=== PATIENT | female | born 2000 | race Caucasian/White ===

== ENCOUNTER 2023-02-09 10:55 | Inpatient (IN) | payer BC, SELFPAY ==
[2023-02-09] VITALS (22 sets, daily range): BP systolic 106–141; BP diastolic 50–105; PULSE 89–115; RESP 12–25; TEMP 36.4–38.5; O2SAT 93–100; BMI 33.1
--- NOTE | 2023-02-09 11:33 | CRLHL7_ITS ---
For Patients: As a result of the Century Cures Act, medical imaging exams and procedure reports are released immediately into your electronic medical record. You may view this report before your referring provider. If you have questions, please contact your health care provider. INDICATION: Right lower quadrant abdominal pain. Nausea. Anorexia. TECHNIQUE: Multiple axial images were obtained from the diaphragm to the symphysis pubis after administration of 92 mL of Isovue-370 intravenously. Sagittal and coronal re-formatted images were obtained. COMPARISON: None. FINDINGS: The visualized portion of the lung bases are clear. There is no focal liver lesion. The spleen, pancreas, gallbladder and adrenal glands are unremarkable. There is no mass or hydronephrosis in the kidneys. There is no evidence of a bowel obstruction. There is an enlarged appendix with surrounding inflammation and appendicolith consistent with an acute appendicitis. There is no abscess or free intraperitoneal air. There is no free fluid in the abdomen or pelvis. The abdominal aorta is normal in caliber. There is no adenopathy. Impression: Acute appendicitis. No abscess or free intraperitoneal air. Please note that all CT scans at this facility use dose modulation, iterative reconstruction, and/or weight-based dosing when appropriate to reduce radiation dose to as low as reasonably achievable. Dictated by Eduardo Damon MD @ 02/09/2023 1:00:04 PM (Electronically Signed)
--- NOTE | 2023-02-09 11:35 | ED.GENADULT ---
HPI - General Adult General Time Seen by Provider: 11:35 Date Seen: 02/09/23 Chief complaint: Abdominal Pain Stated complaint: Abdominal pain Time Seen by Provider: 02/09/23 11:06 History of Present Illness HPI narrative: This is a very pleasant 22-year-old female who is a . She has a past surgical history of previous surgical repair of what sounds like bilateral inguinal hernias and umbilical hernia when she was an infant. No other operations. No other long-term medical conditions. She presents to the ER today accompanied by her friend. She developed epigastric/midline abdominal pain yesterday evening around 7:00 p.m.. It came on fairly abruptly. It was present but moderate at onset. It got worse over night. It woke her up from sleep about 1:00 a.m.. She had a curl up into a ball. It is worse when she moves and better when she holds still but never really goes away. She has been nauseous but not vomiting. No fever. No diarrhea and bowel movements have been normal lately. No BM today. No urinary symptoms. Last menstrual cycle was early January. No other unusual vaginal bleeding, spotting, or vaginal discharge. She went to the ER in [place] overnight. There she apparently had lab work that was reported to be ?normal?. She received GI cocktail with no improvement in her symptoms. She received ibuprofen with no improvement in her symptoms. She was discharged home and told that everything was normal. No imaging obtained. A few hours ago the pain really began to settle more in her right lower quadrant (and also radiates a little bit to her right flank and suprapubic region). It is worse. It hurts a lot when she tries to move. It is somewhat better when she holds still. Related Data Home Medications Medication Instructions Recorded Confirmed lamotrigine 200 mg tablet 400 mg PO QDAY 02/09/23 02/09/23 (Lamictal) oral control 02/09/23 propranolol PO DAILY 02/09/23 Allergies Allergy/AdvReac Type Severity Reaction Status Date / Time No Known Drug Allergies Allergy Verified 02/09/23 11:00 [facility] PFS Social History Smoking Status: Never smoker Do you use any of these nicotine containing products: None Non-prescribed substance use: denies use Exam Narrative: Exam Narrative: Constitutional: Appears well-developed and well-nourished. Alert. Conversant. Non toxic. HENT: Head: Atraumatic. Nose: Nose normal. Mouth/Throat: Oral mucosa is clear and moist. no trismus. Pharynx normal. Tonsils symmetric. No tonsillar enlargement, erythema, or exudate. Eyes: Conjunctivae normal. EOM normal. Pupils equal, round, and reactive to light. No scleral icterus. Neck: Normal range of motion. Neck supple. No tracheal deviation present. Cardiovascular: Normal rate, regular rhythm. No gallop. No friction rub. No murmur heard. Symmetric radial artery pulses Pulmonary/Chest: Effort normal. No stridor. No respiratory distress. No wheezes. No rales. No rhonchi . No tenderness. Abdominal: Soft. Bowel sounds normal. No distension. No mass. Marked right lower quadrant> suprapubic and right upper quadrant and right CVA tenderness. Positive right lower quadrant guarding. No rebound. No Rovsing sign. Equivocally positive psoas sign. No pain/tenderness with heel tap or pelvic rocking. Musculoskeletal: RUE: Normal range of motion. No tenderness. No deformity LUE: Normal range of motion. No tenderness. No deformity RLE: Normal range of motion. No edema. No tenderness. No deformity LLE: Normal range of motion. No edema. No tenderness. No deformity Neurological: Alert and oriented to person, place, and time. Normal strength. CN II-VII intact. No sensory deficit. GCS eye subscore is 4. GCS verbal subscore is 5. GCS motor subscore is 6. Normal coordination Skin: Skin is warm and dry. No rash noted. No pallor. Normal capillary refill. Psychiatric: Normal mood. Normal affect. Const: Vital Signs, click to edit/add: Vital Signs - 24 hr 02/09/23 10:58 02/09/23 12:22 Temperature 97.6 F Pulse Rate 106 H Pulse Rate [Pulse Oximeter] 98 Respiratory Rate 14 12 Blood Pressure 135/86 Blood Pressure [Ri ght Upper Arm] 120/76 Pulse Oximetry 98 100 Oxygen Delivery Me thod Room Air Course Course Hospital Course: Recheck-pain improved after Dilaudid. Resting more comfortably but still having some pain. Would like another dose-ordered Vital Signs Vital signs: Initial Vital Signs Temperature 97.6 F 02/09/23 10:58 Temperature Source Temporal Artery Scan 02/09/23 10:58 Pulse Rate 98 02/09/23 10:58 Pulse Rhythm Regular 02/09/23 10:58 Respiratory Rate 14 02/09/23 10:58 Blood Pressure 120/76 02/09/23 10:58 Blood Pressure Mean 90 02/09/23 10:58 Blood Pressure Position Sitting 02/09/23 10:58 Pulse Oximetry 98 02/09/23 10:58 Oxygen Delivery Method Room Air 02/09/23 10:58 Vital Signs Temperature 97.6 F 02/09/23 10:58 Pulse Rate 98 02/09/23 10:58 Respiratory Rate 14 02/09/23 10:58 Blood Pressure 120/76 02/09/23 10:58 Pulse Oximetry 98 02/09/23 10:58 Oxygen Delivery Method Room Air 02/09/23 10:58 Temperature 97.6 F 02/09/23 10:58 Pulse Rate 106 H 02/09/23 12:22 Respiratory Rate 12 02/09/23 12:22 Blood Pressure 135/86 02/09/23 12:22 Pulse Oximetry 100 02/09/23 12:22 Oxygen Delivery Method Room Air 02/09/23 10:58 Medical Decision Making MDM Narrative Medical decision making narrative: The patient presented with migratory right lower quadrant abdominal pain and the Workup, including CT scan, confirms appendicitis. She is not . She has leukocytosis. There is no CT evidence of rupture or abscess at this time. Pain has been controlled with interventions in the Emergency Department. Discussed with surgery, Dr. Lopez. She will start antibiotics in the pre anesthesia area and assess to hold off for the ER.. The case was discussed with the dry wall installations mechanic surgeon and the patient will be going to the operating room. Lab Data Labs: Lab Results 02/09/23 02/09/23 Range/Units 11:35 12:11 WBC 17.19 H (4.50-11.00) K/uL RBC 4.51 (4.00-5.20) m/uL Hgb 13.0 (12.0-16.0) gm/dL Hct 40.9 (33.0-51.0) % MCV 91 (80-100) fL MCH 29 (26-34) pg MCHC 32 (32-36) gm/dL RDW Coeff of Lisset 12.7 (11.5-15.5) % Plt Count 363 (140-440) K/uL Neut % (Auto) 85.2 H (42.0-72.0) % Lymph % (Auto) 8.8 L (20-44) % Haralson % (Auto) 5.5 (0.0-11.0) % Eos % (Auto) 0.1 (0.0-7.0) % Baso % (Auto) 0.3 (0.0-3.0) % Neut # (Auto) 14.60 H (1.7-7.0) K/uL Lymph # (Auto) 1.50 (0.90-2.90) K/uL Haralson # (Auto) 0.90 (0.00-0.90) K/UL Eos # (Auto) 0.00 (0.00-0.50) K/uL Baso # (Auto) 0.10 (0.00-0.30) K/uL Abs Immat Gran (auto) 0.00 (0.00-0.30) K/uL Imm/Tot Granulo (auto) 0.1 % Sodium 138 (135-149) mmol/L Potassium 3.8 (3.6-5.1) mmol/L Chloride 101 (96-114) mmol/L Carbon Dioxide 27 (20-32) mmol/L Anion Gap 10 (7-15) mEq/L BUN 6 (5-24) mg/dL Creatinine 0.6 (0.5-1.5) mg/dL Estimated Creat Clear 122.69 Estimated GFR 131 ml/min Glucose 93 (60-115) mg/dL Calcium 9.5 (8.4-10.6) mg/dL Total Bilirubin 0.6 (0.1-1.5) mg/dL AST 24 (12-35) U/L ALT 22 (4-35) U/L Alkaline Phosphatase 74 (40-150) U/L Total Protein 7.5 (6.0-8.3) g/dL Albumin 4.4 (3.3-5.0) g/dL Lipase 34 (23-300) U/L HCG, Qual Negative (Negative) Urine Color Yellow (Yellow) Urine Appearance Clear (Clear) Urine pH 7.0 (5.0-8.5) Ur Specific [place] 1.025 (1.000-1.030) Urine Protein Negative (Negative) Urine Glucose (UA) Negative (Negative) Urine Ketones 2+ A (Negative) Urine Blood Trace-intact A (Negative) Urine Nitrite Negative (Negative) Urine Bilirubin Negative (Negative) Urine Urobilinogen 0.2 (0.2-1.0) Ur Leukocyte Esterase Negative (Negative) Urine RBC 0-2 (0-2) Urine WBC 0-2 (0-5) Ur Squamous Epith Cells Many A (None-Few) Amorphous Sediment Few A (None) Urine Bacteria Few A (None) Imaging Data CT scan - abdomen: Attestation: I have reviewed the pertinent imaging results. Radiologist's impression: Impression: Acute appendicitis. No abscess or free intraperitoneal air. Discharge Plan Discharge Clinical Impression: Acute appendicitis Prescriptions: No Action lamotrigine [Lamictal] 200 mg tablet 400 mg PO QDAY propranolol PO DAILY oral control Follow Up/Referrals: Provider,Not a Local [Primary Care Provider] -
[2023-02-09] MEDS: HYDROmorphone 0.5 mg/0.5 ml inj IVP ×3 (11:42→17:43)
[2023-02-09] MEDS: 0.9 % SODIUM CHLORIDE 1000 ml 1,000 ML IV (11:42)
[2023-02-09] MEDS: ONDANSETRON 2 MG/ML inj 4 MG IVP ×2 (11:42→14:21)
[2023-02-09 11:49] LABS: Basophils Percent Auto 0.3 % (0.0-3.0); Eosinophils Percent Auto 0.1 % (0.0-7.0); Hematocrit 40.9 % (33.0-51.0); Immature Granulocytes Pct Auto 0.1 %; Lymphocytes Percent Auto 8.8 % (20-44); Mean Corpuscular HGB Conc 32 gm/dL (32-36); Mean Corpuscular Hemoglobin 29 pg (26-34); Mean Corpuscular Volume 91 fL (80-100); Monocytes Percent Auto 5.5 % (0.0-11.0); Neutrophils Percent Auto 85.2 % (42.0-72.0); Platelet Count* 363 K/uL (140-440); RDW Coefficient of Variation % 12.7 % (11.5-15.5); Red Blood Count 4.51 m/uL (4.00-5.20); White Blood Count* 17.19 K/uL (4.50-11.00)
[2023-02-09 12:01] LABS: Albumin* 4.4 g/dL (3.3-5.0)
[2023-02-09 12:02] LABS: Chloride* 101 mmol/L (96-114); Potassium* 3.8 mmol/L (3.6-5.1); Slide Review Reflex No; Sodium* 138 mmol/L (135-149)
[2023-02-09 12:04] LABS: Bilirubin Total* 0.6 mg/dL (0.1-1.5); Creatinine* 0.6 mg/dL (0.5-1.5); Est. Creatinine Clearance* 122.69; Estimated Glomerular Filt Rate 131 ml/min; HCG Qualitative Serum* Negative (Negative)
[2023-02-09 12:05] LABS: Alanine Aminotransferase* 22 U/L (4-35); Alkaline Phosphatase* 74 U/L (40-150); Anion Gap 10 mEq/L (7-15); Aspartate Amino Transferase* 24 U/L (12-35); Blood Urea Nitrogen* 6 mg/dL (5-24); Carbon Dioxide* 27 mmol/L (20-32); Glucose* 93 mg/dL (60-115); Lipase* 34 U/L (23-300); Total Protein* 7.5 g/dL (6.0-8.3)
[2023-02-09 12:06] LABS: Calcium* 9.5 mg/dL (8.4-10.6)
[2023-02-09 12:25] LABS: Appearance Urine Clear (Clear); Bilirubin Urine Negative (Negative); Blood Urine Trace-intact (Negative); Color Urine Yellow (Yellow); Glucose Urine Negative (Negative); Ketones Urine 2+ (Negative); Leukocyte Esterase Urine Negative (Negative); Nitrite Urine Negative (Negative); Protein Urine Negative (Negative); Specific Gravity Urine 1.025 (1.000-1.030); Urobilinogen Urine 0.2 (0.2-1.0)
[2023-02-09 12:58] LABS: Amorphous Sediment Urine Few; Bacteria Urine Few; RBC Urine 0-2 (0-2); Squamous Epithelial Cell Urine Many (None-Few); WBC Urine 0-2 (0-5)
--- NOTE | 2023-02-09 14:03 | ED.NURSE ---
Dr. Lopez at bedside.
--- NOTE | 2023-02-09 14:12 | PM.GSHP ---
History of Present Illness History of Present Illness Date Seen: 02/09/23 Chief complaint: Abdominal pain Narrative: Luis A Hoang is a 22 year old female who presented to the emergency department with worsening abdominal pain. She states that the pain started yesterday evening, was initially in her upper abdomen but then migrated to the right lower quadrant. She has never had pain like this before. Movement makes it worse, nothing seems to make it better. She does report associated nausea and anorexia, no emesis. Denies any diarrhea. She does feel shaky, but did not have any fever at home. She has never had abdominal surgery before. Review of Systems Status of ROS: Reports: 10 or more systems reviewed and unremarkable except as noted in History and below PFSH PFS Social History Smoking Status: Never smoker Do you use any of these nicotine containing products: None Non-prescribed substance use: denies use Meds Home Medications and Allergies Home Medications Medication Instructions Recorded Confirmed Type lamotrigine 200 mg tablet 400 mg PO QDAY 02/09/23 02/09/23 History (Lamictal) oral control 02/09/23 History propranolol PO DAILY 02/09/23 History Allergies Allergy/AdvReac Type Severity Reaction Status Date / Time No Known Drug Allergies Allergy Verified 02/09/23 11:00 Exam Narrative: Exam Narrative: General: Patient lying in bed, rigors and in moderate discomfort Respiratory: Equal breath rise bilaterally, maintained on room air CV: Tachycardia Abdomen: Soft, tender to palpation right lower quadrant with guarding and rebound Const: Vital Signs, click to edit/add: Vital Signs - 24 hr 02/09/23 10:58 02/09/23 12:22 02/09/23 13:30 Temperature 97.6 F Pulse Rate 106 H Pulse Rate [Pulse Oximeter] 98 110 H Respiratory Rate 14 12 18 Blood Pressure 135/86 Blood Pressure [Ri ght Upper Arm] 120/76 117/70 Pulse Oximetry 98 100 100 Oxygen Delivery Me thod Room Air Room Air Results Results Labs: Leukocytosis, [address] scan report/results: report reviewed and image reviewed Assessment and Plan Assessment and plan (1) Acute appendicitis: Status: Acute Plan The patient presented with a history, exam and imaging findings consistent with acute appendicitis. I discussed the treatment options with the patient including non-surgical and surgical options. I recommended laparoscopic appendectomy. The risks of surgery were reviewed with the patient including the risks of bleeding, post-operative wound or intra-abdominal infection, injury to abdominal structures and possible conversion to an open operation. We also discussed anesthetic complications including [place], stroke, respiratory failure and blood clots. The patient voiced an understanding of our conversation, had the opportunity to ask questions, agreed to accept the risks of surgery and asked that we proceed with surgery.
[2023-02-09] MEDS: LACTATED RINGERS 1000 ML 1,000 ML 100 ML IV (14:25)
--- NOTE | 2023-02-09 14:25 | ED.NURSE ---
Ice pack provided, per Pt request for SOLITARIO. Zofran given, as ordered for nausea. IV SL at this time.
--- NOTE | 2023-02-09 14:36 | ED.NURSE ---
Pt to OR via w/c.
[2023-02-09] MEDS: PIPERACILLIN/TAZOBACTAM 3.375 GM INJ IVPB (14:45)
[2023-02-09] MEDS: BUPIVACAINE 0.25% 30 ML INJECTION (15:17)
--- NOTE | 2023-02-09 15:25 | PM.GSPRC ---
Operative Note Pre-op diagnosis: Acute appendicitis Post-op diagnosis: Same, non perforated Type of Procedure: Laparoscopic appendectomy Indications: Patient is a 22-year-old female with clinical workup and history consistent with acute appendicitis. Risks and benefits of operative intervention were discussed at length with the patient. Risks included but was not limited to: Bleeding, infection, risk of damage to surrounding structures, possible need for additional procedures, possible need to convert to an open operation and postoperative complications such as pneumonia, pulmonary emboli or [place]. All questions and concerns were addressed with the patient agreeing to proceed. Procedure Description: After discussing the risks and benefits of the procedure, the patient signed informed consent.? The operative site was marked and the patient was brought to the operating room and placed on the operating table in supine position.? Care was taken to pad the patient's pressure points.?? The patient was then intubated by anesthesia.?? The operative site was then prepped and draped in the usual sterile fashion.? A time-out was then performed. Entrance to the abdomen was obtained via a 5 mm optical trocar in the left upper quadrant. The abdomen was insufflated and briefly surveyed for any signs of injury. There were none. A 12 mm port was placed lateral to the umbilicus as well as a 5 mm port in the left lower quadrant under direct vision. The patient was then placed in Trendelenburg position with the right side up. The small bowel was gently moved out of the way and the appendix was in view. A small amount of dissection was necessary to free the appendix from the surrounding pelvic attachments. This was grasped and pulled into view. The appendix was inflamed and dilated with overlying fibrinous exudate, but no obvious perforation. A mesenteric window was created between the base of the appendix and the mesoappendix. A 30 mm Endo-LEX purple load stapler was then used to transect the appendix at its base. A 45 mm vascular load stapler was then used to take the mesoappendix. There was a small amount of mesoappendix that was not transected with the stapler. This was cauterized with the handheld cautery, taking care not to injure underlying bowel. The staple lines were inspected for bleeding. There was none. The appendix was then removed from the abdomen using an Endo-Catch bag. The specimen was sent to pathology. The 12 mm port site fascia was closed with 0 Vicryl via the [place]-D[place]. All other ports were removed under direct visualization. The skin was then closed with absorbable subcuticular suture. Sterile dressings were then applied. Instrument sponge and needle counts were correct at the end of the case. The patient was then woken and transported to the PACU in stable condition. Findings: Acute appendicitis, non perforated Anesthesia: GETA Surgeon: Jess Lopez MD Estimated blood loss (mL): 5 Specimen: Appendix Condition: stable Disposition: PACU Date of procedure: 02/09/23
--- NOTE | 2023-02-09 15:42 | P.ANES_ITS ---
Anesthesia Charges Start Date/Time Anesthesia Start Date: 02/09/23 Anesthesia Start Time: 14:36 Stop Date/Time Anesthesia Stop Date: 02/09/23 Anesthesia Stop Time: 15:35 Summary Emergency: [employer]
--- NOTE | 2023-02-09 16:00 | SUR.PHASEI ---
Desire'd to leave pacu early per LM
--- NOTE | 2023-02-09 16:01 | SUR.PHASEI ---
Dr. Lopez notified of temp of 101.3. Will communicate to floor that Dr. Lopez will order antibiotics and patient should stay overnight.
[2023-02-09] MEDS: LACTATED RINGERS 1000 ML 1,000 ML 125 ML IV (16:40)
[2023-02-09] MEDS: KETOROLAC 15 MG/ML inj IVP (16:40)
[2023-02-09] MEDS: ONDANSETRON 2 MG/ML inj IVP (19:48)
[2023-02-09] MEDS: PIPERACILLIN/TAZOBACTAM 3.375 GM in 0.9 % SODIUM CHLORIDE Mini-bag 100 ML IVPB (19:49)
[2023-02-09] MEDS: 0.9 % SODIUM CHLORIDE 250 ml IV (21:37)
--- NOTE | 2023-02-09 22:05 | PC.NURSE ---
Patient to the unit at 1605. Rates pain 2-6/10 with PRN medications for relief. PRN Zofran x1 for nausea. BS active. 3 laps sites SAMMIE. Active ice to op site. SBA. Eating and voiding.
[2023-02-10] VITALS (7 sets, daily range): BP systolic 111–127; BP diastolic 59–82; PULSE 86–107; RESP 14–18; TEMP 36.6–37.1; O2SAT 95–98
[2023-02-10] MEDS: PIPERACILLIN/TAZOBACTAM 3.375 GM in 0.9 % SODIUM CHLORIDE Mini-bag 100 ML IVPB ×4 (01:54→20:06)
--- NOTE | 2023-02-10 05:30 | PC.NURSE ---
END OF SHIFT NOTE: PT FATIGUED AND COOPERATIVE. A&Ox3. PT DENIES ANY CP, SOB, N/V. AMBULATES WITHIN ROOM INDEPENDENTLY. VSS ON RA; AFEBRILE. PT REPORTS SLIGHT PAIN WITH MOVEMENT; PT TOLERATING WITHOUT PAIN RELIEVER. NO PAIN WHILE AT REST. x3 GLUED ABDOMINAL LAP SITES C/D/I AND RUBBLE PLACER. CALL LIGHT WITHIN PT?S REACH.?
[2023-02-10 06:25] LABS: Basophils Percent Auto 0.1 % (0.0-3.0); Hematocrit 32.7 % (33.0-51.0); Hemoglobin* 10.5 gm/dL (12.0-16.0); Immature Granulocytes Pct Auto 1.1 %; Lymphocytes Percent Auto 4.5 % (20-44); Mean Corpuscular HGB Conc 32 gm/dL (32-36); Mean Corpuscular Hemoglobin 29 pg (26-34); Mean Corpuscular Volume 90 fL (80-100); Neutrophils Percent Auto 91.3 % (42.0-72.0); Platelet Count* 317 K/uL (140-440); RDW Coefficient of Variation % 12.9 % (11.5-15.5); Red Blood Count 3.63 m/uL (4.00-5.20); White Blood Count* 19.31 K/uL (4.50-11.00)
[2023-02-10 06:28] LABS: Slide Review Reflex No
[2023-02-10] MEDS: ACETAMINOPHEN 325 MG TABLET 650 MG PO ×2 (09:32→15:33)
[2023-02-10] MEDS: OXYCODONE 5 MG TABLET PO (09:32)
[2023-02-10] MEDS: lamoTRIgine 100 MG TABLET 400 MG PO (10:26)
--- NOTE | 2023-02-10 10:37 | PM.GSPN ---
Subjective Subjective Date Seen: 02/10/23 Interval history: Patient is feeling good this morning. Some mild pain on the right side, significantly better than yesterday. Did have some fevers overnight. Denies any nausea and tolerating a regular diet. Exam Narrative: Exam Narrative: Gen: alert and oriented, NAD Abd: soft, non tender and non distended. No guarding or rebound. Incision sites c/d/i Const: Vital Signs, click to edit/add: Vital Signs - 24 hr 02/09/23 10:58 02/09/23 12:22 02/09/23 13:30 Temperature 97.6 F Pulse Rate 106 H Pulse Rate [Pulse Oximeter] 98 110 H Respiratory Rate 14 12 18 Blood Pressure 135/86 Blood Pressure [Ri ght Arm] Blood Pressure [Ri ght Upper Arm] 120/76 117/70 Pulse Oximetry 98 100 100 Oxygen Delivery Me thod Room Air Room Air Oxygen Flow Rate 02/09/23 15:30 02/09/23 15:35 02/09/23 15:40 Temperature 99.1 F Pulse Rate 106 H 90 89 Pulse Rate [Pulse Oximeter] Respiratory Rate 14 25 H 24 Blood Pressure 140/69 H 135/64 126/64 Blood Pressure [Ri ght Arm] Blood Pressure [Ri ght Upper Arm] Pulse Oximetry 93 97 96 Oxygen Delivery Me thod Nasal Cannula Oxygen Flow Rate 2 02/09/23 15:45 02/09/23 15:50 02/09/23 15:55 Temperature 101.3 F H Pulse Rate 90 92 90 Pulse Rate [Pulse Oximeter] Respiratory Rate 25 H 24 24 Blood Pressure 134/66 130/64 136/68 Blood Pressure [Ri ght Arm] Blood Pressure [Ri ght Upper Arm] Pulse Oximetry 97 95 95 Oxygen Delivery Me thod Room Air Room Air Oxygen Flow Rate 02/09/23 16:00 02/09/23 16:05 02/09/23 16:15 Temperature 100.0 F H 100.0 F H Pulse Rate 104 H Pulse Rate [Pulse Oximeter] 104 H 104 H Respiratory Rate 24 18 18 Blood Pressure 137/85 Blood Pressure [Ri ght Arm] 127/91 H 123/64 Blood Pressure [Ri ght Upper Arm] Pulse Oximetry 96 95 95 Oxygen Delivery Me thod Room Air Room Air Oxygen Flow Rate 02/09/23 16:18 02/09/23 16:30 02/09/23 16:45 Temperature 100.0 F H 100.0 F H Pulse Rate 104 H Pulse Rate [Pulse Oximeter] 108 H Respiratory Rate 18 20 Blood Pressure Blood Pressure [Ri ght Arm] 127/91 H 138/68 141/105 H Blood Pressure [Ri ght Upper Arm] Pulse Oximetry 94 95 Oxygen Delivery Me thod Room Air Room Air Room Air Oxygen Flow Rate 02/09/23 17:00 02/09/23 17:30 02/09/23 18:00 Temperature 100.0 F H 98.7 F Pulse Rate Pulse Rate [Pulse Oximeter] 115 H 106 H 110 H Respiratory Rate 18 16 18 Blood Pressure Blood Pressure [Ri ght Arm] 116/50 L 106/94 H 112/57 L Blood Pressure [Ri ght Upper Arm] Pulse Oximetry 94 94 95 Oxygen Delivery Me thod Room Air Room Air Room Air Oxygen Flow Rate 02/09/23 19:00 02/09/23 20:00 02/09/23 21:00 Temperature Pulse Rate Pulse Rate [Pulse Oximeter] 109 H 107 H 108 H Respiratory Rate 18 16 18 Blood Pressure Blood Pressure [Ri ght Arm] 117/62 127/63 115/80 Blood Pressure [Ri ght Upper Arm] Pulse Oximetry 96 97 96 Oxygen Delivery Me thod Room Air Room Air Room Air Oxygen Flow Rate 02/09/23 22:00 02/10/23 02:00 02/10/23 02:00 Temperature 98.7 F Pulse Rate Pulse Rate [Pulse Oximeter] 110 H 86 86 Respiratory Rate 16 14 14 Blood Pressure Blood Pressure [Ri ght Arm] 119/58 L 111/59 L Blood Pressure [Ri ght Upper Arm] Pulse Oximetry 95 96 Oxygen Delivery Me thod Room Air Room Air Oxygen Flow Rate 02/10/23 03:00 02/10/23 07:00 02/10/23 07:00 Temperature 98 F Pulse Rate Pulse Rate [Pulse Oximeter] 101 H 101 H Respiratory Rate 14 18 18 Blood Pressure Blood Pressure [Ri ght Arm] 113/82 Blood Pressure [Ri ght Upper Arm] Pulse Oximetry 96 Oxygen Delivery Me thod Room Air Room Air Oxygen Flow Rate Labs/Imaging Labs Labs: WBC 19 Progress Note: A&P Assessment and plan (1) Acute appendicitis: Status: Acute Assessment and Plan: Patient POD1 lap appy for acute appendicitis. No evidence of perforation intra op, but did have some inflammatory adhesions and fibrinous exudate present in the RLQ. Some low grade fevers overnight and increasing leukocytosis this morning (17 -->19). Will have patient stay inpatient on IV antibiotics until >24 hrs afebrile and down trending WBC. Will plan for a course of antibiotics at discharge. - reg diet - dc IVF - po pain meds as needed - IV Zosyn - encourage ambulation - SCDs for DVT ppx - trend fever and WBC
[2023-02-10] MEDS: IBUPROFEN 600 MG TABLET PO (12:47)
[2023-02-10] MEDS: 0.9 % SODIUM CHLORIDE 250 ml IV (14:09)
--- NOTE | 2023-02-10 18:58 | PC.NURSE ---
Nursing Care Hours: [id number] Pt this shift alert and oriented, calm and cooperative. Pain increased from 0/10 to 7/10 after breakfast and using bathroom. Treated per eMAR. Pain rest of shift remained 0-2/10 with Ibuprofen and Acetaminophen and ice. No nausea. Bowel sounds hypoactive. Encouraged walking the halls, pt walked gann x1. Director Of Corporate Marketing encouraged pt to go multiple times a day to promote gastric motility. Pt took a shower, educated on wound care. Lap site open to air and asymptomatic. Eating, drinking. voiding sufficiently. No BM.
[2023-02-10] MEDS: SENNOSIDES 1 TAB TABLET PO (20:16)
--- NOTE | 2023-02-10 22:50 | PC.NURSE ---
Pt pleasant and coopertive. Up ambulating in the hallways. VSS. BT +, Pt states passing flatus. No BM Tolerating reg diet. Given senna at bedtime per her request.
[2023-02-11] MEDS: OXYCODONE 5 MG TABLET PO (01:42)
[2023-02-11] MEDS: PIPERACILLIN/TAZOBACTAM 3.375 GM in 0.9 % SODIUM CHLORIDE Mini-bag 100 ML IVPB ×2 (01:43→08:39)
[2023-02-11 02:00] VITALS: BP 118/72; PULSE 107; RESP 16; TEMP 36.8; O2SAT 97
[2023-02-11 06:21] LABS: Basophils Absolute Auto 0.03 K/uL (0.00-0.30); Basophils Percent Auto 0.4 % (0.0-3.0); Eosinophils Absolute Auto 0.07 K/uL (0.00-0.50); Hematocrit 29.9 % (33.0-51.0); Hemoglobin* 9.6 gm/dL (12.0-16.0); Immature Granulocytes Abs Auto 0.06 K/uL (0.00-0.30); Immature Granulocytes Pct Auto 0.8 %; Lymphocytes Percent Auto 15.1 % (20-44); Mean Corpuscular HGB Conc 32 gm/dL (32-36); Mean Corpuscular Hemoglobin 29 pg (26-34); Mean Corpuscular Volume 91 fL (80-100); Monocytes Percent Auto 6.9 % (0.0-11.0); Neutrophils Percent Auto 75.8 % (42.0-72.0); Platelet Count* 247 K/uL (140-440); RDW Coefficient of Variation % 13.1 % (11.5-15.5); Red Blood Count 3.27 m/uL (4.00-5.20); White Blood Count* 7.15 K/uL (4.50-11.00)
[2023-02-11 06:25] LABS: Slide Review Reflex No
--- NOTE | 2023-02-11 06:37 | PC.NURSE ---
END OF SHIFT NOTE: PT PLEASANT AND COOPERATIVE. A&Ox3. DENIES CP, SOB, N/V. AMBULATES INDEPENDENTLY. WALKED HALLS x1. VSS ON RA; AFEBRILE. C/O ABDOMINAL PAIN 6/10 WITH MOVEMENT; RELIEF FROM PRN PAIN MED AND ICE. 3x GLUED LAP SITES SAMMIE. CALL LIGHT WITHIN PT?S REACH. BS+. PASSING FLATUS. NO BM THIS SHIFT.
[2023-02-11 08:00] VITALS: BP 110/59; PULSE 98; RESP 16; TEMP 37; O2SAT 95
--- NOTE | 2023-02-11 09:11 | PM.DS1 ---
DS: Providers Provider Date Seen: 02/11/23 Date of admission: 02/10/23 09:55 Primary care physician: Not a Local Provider Admitting Clinician: Jess Lopez MD Attending Physician on discharge: Jess Lopez MD DS: Summary Hospital Course Hospital Course: Patient was admitted to the hospital with clinical workup in symptoms consistent with acute appendicitis. She under went a laparoscopic appendectomy, no evidence of perforation with some surrounding inflammatory fluid and fibrinous exudate in the right lower quadrant. Postoperatively she did have fevers and an increase in her WBC (17--19). She continued on IV antibiotics until she was afebrile for greater than 24 hours and had normalization of her WBC, on postop day 2. At the time of discharge she was transitioned to Augmentin to complete a 7 day course, was ambulating without difficulty, voiding independently, tolerating a regular diet and had return of bowel function. Time Spent with Patient Time attestation: Total time spent providing and/or coordinating discharge services: Exam Narrative: Exam Narrative: General: Alert and oriented, no acute distress. Respiratory: Equal breath rise, maintained on room air CV: Tachycardic, regular rhythm Abdomen: Soft, nontender and nondistended. Incisions clean/dry/intact Const: Vital Signs, click to edit/add: Vital Signs - 24 hr 02/10/23 11:00 02/10/23 15:00 02/10/23 15:00 Temperature Pulse Rate [Pulse Oximeter] 107 H 107 H 106 H Respiratory Rate 18 18 18 Blood Pressure [Ri ght Arm] 123/82 121/75 Pulse Oximetry 98 95 Oxygen Delivery Me thod Room Air Room Air 02/10/23 19:00 02/11/23 02:00 02/11/23 02:00 Temperature 98.5 F 98.2 F Pulse Rate [Pulse Oximeter] 101 H 107 H 107 H Respiratory Rate 16 16 Blood Pressure [Ri ght Arm] 127/77 118/72 Pulse Oximetry 97 Oxygen Delivery Me thod Room Air DS: Data Data Completed and Pending Labs on day of discharge: Labs from last 24 hours 02/11/23 06:04 WBC 7.15 RBC 3.27 L Hgb 9.6 L Hct 29.9 L MCV 91 MCH 29 MCHC 32 RDW Coeff of Lisset 13.1 Plt Count 247 Neut % (Auto) 75.8 H Lymph % (Auto) 15.1 L [place] % (Auto) 6.9 Eos % (Auto) 1.0 Baso % (Auto) 0.4 Neut # (Auto) 5.40 Lymph # (Auto) 1.10 [place] # (Auto) 0.50 Eos # (Auto) 0.07 Baso # (Auto) 0.03 Abs Immat Gran (auto) 0.06 Imm/Tot Granulo (auto) 0.8 Discharge Plan Discharge Disposition: Home, Self-Care Date of Admission: 02/10/23 09:55 Primary Care Provider: Provider,Not a Local Condition: Improved Anticipated Discharge Date/Time: 02/11/23 08:07 Discharge Medications: New oxycodone 5 mg tablet 5 mg PO Q6H PRN (Reason: pain) Qty: 10 0RF senna 8.6 mg capsule 8.6 mg PO DAILY PRN (Reason: constipation) Qty: 90 0RF amoxicillin-pot clavulanate 875-125 mg tablet 1 tab PO BID Qty: 10 0RF Continued lamotrigine [Lamictal] 200 mg tablet 400 mg PO QDAY propranolol PO DAILY oral control sucralfate 1 gram tablet 1 g PO QID propranolol 10 mg tablet 10 mg PO DAILY Discharge Orders: Discharge Order (Routine); Ordered 02/11/23 Ordered By: Jess Lopez Patient Education: Surgical Site Infections (DC), General Anesthesia (DC), Laparoscopic Appendectomy (DC), Post-Operative Instructions: Appendectomy Additional Instructions: You were prescribed a narcotic pain medication. In addition you may supplement with Tylenol and/or ibuprofen. Be sure to not exceed greater than 4 g of Tylenol in a 24 hour period. While on narcotic pain medicine please take stool softeners. A prescription of stool softeners has been sent to the pharmacy. Stop if having greater than 2 stools per day. Okay to shower starting tomorrow. Do not soak in a bath or swim for 2 weeks. Activity Level: No strenuous activity Activity Detail: Activity as tolerated. Avoid strenuous activity. No lifting greater than 20 lb for 2 weeks. Discharge Diet: Regular Follow Up Appointments: Provider,Not a Local [Primary Care Provider] - Forms: Work/School Release
[2023-02-11] MEDS: SENNOSIDES 1 TAB TABLET PO (09:36)
[2023-02-11] MEDS: lamoTRIgine 100 MG TABLET 400 MG PO (09:36)
[2023-02-11] MEDS: IBUPROFEN 600 MG TABLET PO (09:39)
--- NOTE | 2023-02-11 11:24 | PC.NURSE ---
VSS AND AFEBRILE. LAP SITES x3 TO ABDOMEN COVERED WITH INTACT SURGICAL GLUE AND SAMMIE. DENIED N/V. REPORTED PAIN 3/10 IMPROVED WITH PO PAIN MEDS. IBUPROFEN ADMINISTERED PRIOR TO DC. DECLINED BREAKFAST. SALINE LOCK DC'D. REVIEWED DC INSTRUCTIONS WITH PATIENT AND SHE DENIED QUESTIONS OR CONCERNS. PATIENT DC'D HOME VIA FRIEND.
== END 2023-02-11 09:55 | disposition home or self-care (01) | DRG 225 ==
LOC: ED 13:58 → SS 14:37 → MEDSURG 16:18 → SS 02-10 09:57 → MEDSURG 02-11 09:11
PROVIDERS: Admitting Provider Surgery; Emergency Provider Emergency Medicine; Visit Provider Surgery
PROC: 0DTJ4ZZ Resection of Appendix, Percutaneous Endoscopic Approach (ICD-10-PCS; CPT 44970; principal; 2023-02-09 14:15)
DX: K35.80 Unspecified acute appendicitis (principal); R50.82 Postprocedural fever; D72.829 Elevated white blood cell count, unspecified
CPT/HCPCS: 00840; 36415; 74177; 80053; 81001; 83690; 84703; 85025; 87086; 88304; 99140; 99284; 99285; A9270; J0330; J0665; J1100; J1170; J1885; J2405; J2543; J2704; J2710; J3010; J7030; J7050; J7120; Q9967

== ENCOUNTER 2024-11-14 19:15 | Outpatient (CLI) | payer BC, SELFPAY | END 2024-11-14 19:16 | disposition home or self-care (01) | PROVIDERS: Visit Provider Physician Assistant | DX: N92.6 Irregular menstruation, unspecified (principal) | CPT/HCPCS: 84146; 84443 ==

== ENCOUNTER 2024-12-26 09:02 | Outpatient (CLI) | payer BC, SELFPAY ==
--- NOTE | 2024-12-26 09:15 | CRLHL7_ITS ---
For Patients: As a result of the Century Cures Act, medical imaging exams and procedure reports are released immediately into your electronic medical record. You may view this report before your referring provider. If you have questions, please contact your health care provider. CLINICAL HISTORY: Excessive frequent menstruation with IUD TECHNIQUE: Transabdominal and transvaginal pelvic ultrasound. Transvaginal images of the pelvis were obtained for better visualization of the ovaries. Grayscale and color Doppler images were submitted. COMPARISON: 02/09/[address] FINDINGS: Uterus: 8.2 x 4.3 x 4.9 cm. Normal appearance. Endometrium: 2 mm There is an IUD in place. This is located within the lower uterine segment, proximally 3 cm from the fundus. Right ovary: 4.0 x 2.5 x 2.0 cm Normal appearance. Left ovary: 4.1 x 1.9 x 2.5 cm Normal appearance. No adnexal mass. No free fluid. IMPRESSION: Malpositioned IUD located within the lower uterine segment. Dictated by Obie Webber MD @ 12/27/2024 3:25:39 PM (Electronically Signed)
== END 2024-12-26 09:03 | disposition home or self-care (01) ==
LOC: US 09:03
PROVIDERS: Visit Provider Physician Assistant
DX: N92.1 Excessive and frequent menstruation with irregular cycle (principal); Z97.5 Presence of (intrauterine) contraceptive device
CPT/HCPCS: 76830; 76856

== ENCOUNTER 2025-01-23 14:06 | Emergency (ER) | payer BC, SELFPAY ==
--- OUTSIDE RECORDS SUMMARY | 2025-01-21 14:53 | XMS_ITS | Encounter Summary ---
Author Organization [facility] Address [address] [place] [address] Care Team Providers Care Bundle Helper Name Role Phone Alysai Vora APRN, C.N.P. Primary Care Pro vider Reason for Visit * Reason Comments Pelvic Pain Patient presents w/i ntermittent shooting pelvic pain onset one week ago. She states that urinating and certain movements provoke the pain. She states she is unable to locate the IUD strings, this was placed on 01/03/25. Encounter Details Date Type Department Care Team (Late st Contact Info) Description 01/21/2025 2:53 PM CDT - 01/21/2025 5:21 PM CDT Emergency [facility] [address] [place] [phone] Christiano Carmona M.D. [address] [place] [phone] Other Specified Conditions Associated With Female Genital Organs And Menstrual Cycle (Primary Dx); Pain Pelvic Female; Vaginosis Bacterial Discharge Disposition: Home or Self Care Social History Tobacco Use Types Packs/Day Years Used Date Smoking Tobacco: Never Passive Smoke Exposure: Never Smokeless Tobacco: Never Alcohol Use Standard Drinks/Week Comments Never 0 (1 standard drink = 0.6 oz pur e alcohol) [facility] Utilities Answer Date Recorded In the past 12 months has [employer], gas, oil, or water company threatened to shut off services in your home? No 10/09/2023 Humiliation, Afraid, Rape, and Kick questionnair e Answer Date Recorded Within the last year, have y ou been afraid of your partner or ex-partner? No 08/01/2022 Within the last year, have y ou been humiliated or emotionally abused in other ways by your partner or ex-partner? No Within the last year, have y ou been kicked, hit, slapped, or otherwise physically hurt by your partner or ex-partner? No 08/01/2022 Within the last year, have y ou been raped or forced to have any kind of sexual activity by your partner or ex-partner? No 08/01/2022 Hunger Vital Sign Answer Date Recorded Within the past 12 months, y ou worried that your food would run out before you got the money to buy more. Never true 10/09/19 Within the past 12 months, t he food you bought just didn't last and you didn't have money to get more. Never true 10/09/2023 PRAPARE - Transportation Answer Date Re corded In the past 12 months, has l ack of transportation kept you from medical appointments or from getting medications? No 08/2023 In the past 12 months, has l ack of transportation kept you from meetings, work, or from getting things needed for daily living? No 10/09/2023 Depression Answer Date Recor ded PHQ-9 Total Score (max 27) 9 11/14 Housing Stability Answer Date Recorded What is your living situation today? I have a [facility] place to live 10/09/2023 Education Answer Date Recorded What is the highest level of school you have completed or the highest degree you have received? 12th grade 08/01/2022 Comments No Sex and Gender Information Value Date Recorded Sex Assigned at Female 04/24/2021 1:37 PM [employer] Legal Sex Female 4:54 PM [employer] Gender Identity Female 07/31/2020 9:20 AM [employer] Sexual Orientation Straight 07/31/2020 9: 20 AM [employer] documented as of this encounter Last Filed Vital Signs Vital Sign Reading Time Taken Comments Blood Pressure 118/76 01/21/2025 5:20 PM CDT Pulse 72 01/21/2025 5:20 PM CDT Temperature 37.4 C (99.3 F) 01/21/2025 3:02 PM CDT Respiratory Rate 16 01/21/2025 5:20 PM CDT Oxygen Saturation 100% 01/21/2025 5:20 PM CDT Inhaled Oxygen Concentration - - Weight 85.3 kg (188 lb) 01/21/2025 2:56 PM CDT Height 160 cm (5' 3) 01/21/2025 2:56 PM CDT Body Mass Index 33.3 01/21/2025 2:56 PM CDT documented in this encounter Discharge Instructions * Discharge Instructions* Alex Arreaga M.D. - 01/21/2025 5:08 PM CDT Discharge Instructions After Emergency Department Visit for Pelvic Pain You came to the emergency department with pelvic pain that gets worse when you move or urinate. Youalso noticed more vaginal discharge, but no bleeding. You had an intrauterine device (IUD) placed about three weeks ago, and your exam today showed that the IUD strings are shorter than usual and maybe poking the cervix. There is no sign that the IUD has gone through the wall of your uterus (perforation), but it may not be in the right position. What to Expect Next: - You will be contacted if your tests for sexually transmitted infections (STIs) are positive. If you do not hear back, your tests were negative. - You should follow up with your women's clinic (the clinic that placed your IUD) as soon as possible. They will help decide if the IUD needs to be removed, replaced, or left in place. - An outpatient ultrasound may be needed to check the position of your IUD. What You Should Do: - Watch for any new symptoms, such as fever, chills, severe pain, heavy vaginal bleeding, or foul-smelling discharge. If these happen, seek medical care right away. - Avoid sexual intercourse until you have been seen by your women's clinic and your STI results areback. - Take any medications prescribed to you as directed. - Keep your follow-up appointment with your women's clinic, even if you start to feel better. Why Follow-Up Is Important: - Sometimes, an IUD can move out of place, which may cause pain or increase the risk of infection. Checking the position with an ultrasound and talking to your clinic is the safest way to make sure you stay healthy. - Evidence-based medicine shows that following up with your healthcare team and using the best available information helps prevent complications and improves outcomes.[1][2][3][4][5] Questions or Concerns: - If you have any questions or new symptoms, contact your healthcare provider or return to the emergency department. Thank you for taking care of your health. Your safety and well-being are our top priorities. References Users' Guides to the Medical Literature: XXV. Evidence-Based Medicine: Principles for Applying the Users' Guides to Patient Care. Serg GH, Davi RB, Shawn WhartonZ, et al. ROD. 2000;284(10):1290-6. doi:10.1001/rod.284.10.1290. The [place]: Evidence-Based Medicine in the Age of Information. Citlali DB, Fernando K, Jillian P. Journal of the [place] Academy of Child and Adolescent Psychiatry. 2019;58(1):8-15. doi:10.1016/j.jaac.2018.06.035. Evidence-Based Medicine: Useful Tools for Decision Making. Matias SHAHANA, Irwig LM, Concetta MR. The Medical Journal of [place]. 2001;174(5):248-53. doi:10.5694/j.0126-7399.2001.os018880.x. [place] Statement on Evidence-Based Practice. Tashi M, Sumit W, Glasziou P, et al. BMC MedicalEducation. 2005;5(1):1. doi:10.1186/9695-7824-5-1. Evidence-Based Medicine in a Nutshell: A Guide to Finding and Using the Best Evidence in Caring forPatients. Christopher Pierre. Archives of Dermatology. 1998;134(12):1609-18. doi:10.1001/archderm.134.12.1609. documented in this encounter Medications at Time of Discharge cetirizine (ZyrTEC) 10 mg tabletIndications :Rhinitis Allergic Take 1 tablet (10 mg total) by mouth daily as needed for allergies. 07/31/2021 gabapentin (Neurontin) 300 mg capsule Take 1 capsule (300 mg total) by mouth 2 (two) times a day. 60 capsule 2 12/02/2024 metroNIDAZOLE (FlagyL) 500 mg tabletIndications :Vaginosis Bacterial Take 1 tablet (500 mg total) by mouth 2 (two) times a day for 7 days. 14 tablet 01/22/2025 01/29/2025 propranoloL (InderaL) 20 mg tablet Take 1 tablet (20 mg total) by mouth daily. 90 tablet 1 11/07/2024 lamoTRIgine (LaMICtaL) 150 mg tablet Take 1 tablet (150 mg total) by mouth 2 (two) times a day. 60 tablet 2 11/14/2024 01/23/2025 documented as of this encounter ED Notes * Christiano Carmona M.D. - 01/21/2025 3:[address] [facility] Department of [facility] 01/21/2025 5:11 PM CDT *Encounter labs and radiology results at the end of this note* Chief Complaint Patient presents with Pelvic Pain Patient presents w/intermittent shooting pelvic pain onset one week ago. She states that urinating and certain movements provoke the pain. She states she is unable to locate the IUD strings, this wasplaced on 01/03/25. PCP: Alysia Vora APRN, C.N.P. HPI: Luis A Hoang is a 24 y.o. otherwise healthy woman presenting to the emergency department with low pelvic pain worse with urination and movement. IUD was placed three weeks ago without complication. She has had increased vaginal discharge, no bleeding, and the sharp stabbing pain. Episodes last five or 10 minutes before resolving. Placed in [place] on 01/03/25. No complications. Denies any fevers or chills. No nausea vomiting diarrhea. No intercourse since placement. A complete review of systems was obtained and negative except as in the HPI. No significant alcohol, tobacco, or illicit drugs. PHYSICAL EXAMINATION General: Well-appearing in no acute distress. HEENT: Head is normocephalic and atraumatic. Hearing and vision are grossly normal. No scleral icterus, jaundice, or pallor. Neck: Supple, with normal range of motion. Heart: Heart rate is normal and regular Lungs: Breathing at a normal rate, no respiratory distress Abdomen: Nondistended. Mild suprapubic abdominal discomfort, no rebound : Normal external genitalia. Small amount of blood and moderate amount purulent discharge in the vaginal vault. No cervical motion tenderness. Strings are visible maybe 1 mm from the cervical os but certainly shorter than I would anticipate is normal. Neurologic: GCS 15. Moving all 4 extremities spontaneously. Psychiatric: Normal mood and affect. Differential diagnosis includes uterine perforation, misplaced IUD, dislodged IUD, STD, placement irritation. MDM: 24-year-old woman presenting just under three weeks from IUD placement, uncomplicated. With positional and urinary sharp stabbing pain in the lower pelvic region. Inconsistent with UTIs or otherpelvic pain. Urinalysis is not consistent with cystitis in the setting of no dysuria or other urinary symptoms. negative. Swabs are obtained and pending. We will send the urine for culture though after pelvic exam (as above) I suspect she has short IUD strings that are irritating in the cervix. No evidence of perforation or peritonitis. No indication for advanced imaging at this point. Will have her follow up with her placing practice for re-evaluation and discussion on management whether this includes removal, repositioning, or replacement of the IUD. Final Diagnoses: as of 01/21/25 1711 Other Specified Conditions Associated With Female Genital Organs And Menstrual Cycle - Cervix pain on movement and urination Pain Pelvic Female Vitals: 01/21/25 1502 01/21/25 1503 01/21/25 1506 01/21/25 1633 BP: 120/73 120/73 122/78 BP Location: Left arm Patient Position: Lying Pulse: 75 85 Resp: 16 Temp: 37.4 ??C TempSrc: Temporal SpO2: 98% 100% Weight: Height: Medications acetaminophen tablet 1,000 mg (TylenoL) (1,000 mg oral Given 01/21/25 1506) Clinical Impression: Final diagnoses: [N94.89] Other Specified Conditions Associated With Female Genital Organs And Menstrual Cycle - Cervix pain on movement and urination [R10.2] Pain Pelvic Female Disposition: Discharge ED Prescriptions None Labs Reviewed URINALYSIS WITH MICROSCOPIC IF INDICATED, U - Abnormal Result Value Source Urine, Urine, Midstream Clarity Clear Color Yellow Blood Moderate (*) Nitrite Negative Leukocyte Esterase Moderate (*) Protein Negative Glucose Negative Ketones, QI(U) Negative Bilirubin Negative pH 6.5 Specific [place] 1.010 Urobilinogen 0.2 MICROSCOPIC MANUAL - Abnormal White Blood Cells 4-10 Red Blood Cells 3-10 (*) Dysmorphic Red Blood Cells <=25 Squamous Cells 4-10 Bacteria Present (*) BACTERIAL CULTURE, AEROBIC + SUSC, URINE CHLAMYDIA/GONORRHOEAE AMPLIFIED RNA VAGINITIS PANEL, AMPLIFIED RNA TEST, POCT, U (LAB) Test, POCT, U Negative US OB Transvaginal (Results Pending) Christiano Carmona M.D. 01/21/25 1711 documented in this encounter Plan of Treatment Pending Results Name Type Priority Associated Diagnoses Date /Time Chlamydia / Gonorrhoeae Amplified RNA Microbiology STAT 01/21/2025 4:50 PM CDT Scheduled Orders Name Type Priority Associated Diagnoses Order Schedule Chlamydia / Gonorrhoeae Amplified RNA Microbiology STAT STAT for 1 Occurrences starting 01/21/2025 until 01/21/2025 OB Transvaginal Imaging RAD - Routine (most inpatients and all outpatients) Other Specified Conditions Associated With Female Genital Organs And Menstrual Cycle Expected: 01/21/2025, Expires: 04/23/2026 documented as of this encounter Procedures Procedure Name Priority Date/Time Associated Diagnosis Comments VAGINITIS PANEL, AMPLIFIED RNA STAT 01/21/2025 4:50 PM CDT URINALYSIS WITH MICROSCOPIC IF INDICATED, U STAT 01/21/2025 2:57 PM CDT HC URINALYSIS AUTO W MICRO STAT 01/21/2025 2:57 PM CDT BACTERIAL CULTURE, AEROBIC + SUSC, URINE Routine 01/21/2025 2:57 PM CDT TEST, POCT, U (LAB) STAT 01/21/2025 2:57 PM CDT documented in this encounter Results * (ABNORMAL) Vaginitis Panel, Amplified RNA (01/21/2025 4:50 PM CDT) Bacterial Vaginosis, Amplified RNA Positive(A) Negative 01/22/2025 4:33 AM CDT MKTO Comment: Results should be interpreted alongside clinical presentation. Up to 40% of asymptomatic patients may test positive by this assay. Assay result is based on relative amounts of Lactobacillus (L. gasseri, L. crispatus, L. jensenii), Gardnerella vaginalis and Atopobium vaginae. Individual organisms are not reported. Prisca species, Amplified RNA Negative Negative 01/22/2025 4:38 AM CDT MKTO Comment: No RNA detected from Prisca albicans, C. tropicalis, C. parapsilosis or C. dubliniensis. A negative result does not exclude infection. Prisca glabrata, Amplified RNA Negative Negative 01/22/2025 4:38 AM CDT MKTO Comment: No RNA detected from Prisca glabrata. A negative result does not exclude infection. Trichomonas vaginalis Amplified RNA Negative Negative 01/22/2025 4:38 AM CDT MKTO Swab (Vagina) 01/21/2025 4:5 0 PM CDT 01/21/2025 9:55 PM CDT us Christiano FINE MICROBIOLOGY - GENERAL O RDERABLES Final Result [facility] [address] [place] [address], [facility] MKTO [address] [address] * Bacterial Culture, Aerobic + Susceptibility, Urine (01/21/2025 2:57 PM CDT) Urine Culture Urogenital microbiota, susceptibilities not performed per laboratory criteria. 01/22/2025 3:56 PM CDT MKTO Urine (Urine, Midstream) 01/21/2025 2:57 PM CDT 01/21/2025 9:55 PM CDT Comment:Specimen Source Site : Urine us Christiano aCrmona M.D. LAB MICROBIOLOGY - GENERAL O RDERABLES Final Result Performing Organization Address [facility]/ZIP Co de Phone Number [facility] [address] [place] [address], [place] [facility] [address] [place] [address] * (ABNORMAL) Microscopic Manual (01/21/2025 2:57 PM CDT) White Blood Cells 4-10 /hpf 01/21/2025 3:13 PM CDT NPRG Comment: ----REFERENCE VALUE---- Males: 0-3 Females: 0-10 Unknown: 0-10 Red Blood Cells 3-10(A) 0 - 2 /hpf 3:13 PM CDT NPRG Dysmorphic Red Blood Cells <=25 <=25 % 01/21/2025 3:13 PM CDT NPRG Squamous Cells 4-10 /hpf 01/21/2025 3:13 PM CDT NPRG Bacteria Present(A) None Seen 01/21/2025 3:13 PM CDT NPRG Urine 01/21/2025 2:57 PM CDT 01/21/2025 3:01 PM CDT us Soft Results Interface LAB URINE ORDERABLES Jackeline l Result [facility] [address] [place] [address], [place] NPRG [facility] [address] [place] [address] * Test, POCT, Urine (Lab) (01/21/2025 2:57 PM CDT) Test, POCT, U Negative 01/21/2025 3:13 PM CDT NPRG Urine (Urine, Midstream) 01/21/2025 2:57 PM CDT 01/21/2025 3:01 PM CDT Christiano Carmona M.D. LAB POCT ORDERABLES - DEVICE Final Result [facility] [address] [place] [address], [facility] NPRG [facility] [address] [place] [address] * (ABNORMAL) Urinalysis with Microscopic if Indicated: Urine, Midstream (01/21/2025 2:57 PM CDT) Source Urine, Urine, Midstream 01/21/2025 3:01 PM CDT NPRG Clarity Clear Clear 01/21/2025 3:04 PM CDT NPRG Color Yellow 01/21/2025 3:04 PM CDT NPRG Comment: ----REFERENCE VALUE---- Colorless Yellow Elsa Blood Moderate(A) Negative 01/21/2025 3:04 PM CDT NPRG Nitrite Negative Negative 01/21/2025 3:04 PM CDT NPRG Leukocyte Esterase Moderate(A) Negative 01/21/2025 3:04 PM CDT NPRG Protein Negative mg/dL 01/21/2025 3:04 PM CDT NPRG Comment: ----REFERENCE VALUE---- Negative Trace Glucose Negative Negative mg/dL 01/21/2025 3:04 PM CDT NPRG Ketones, QI(U) Negative Negative mg/dL 01/21/2025 3:04 PM CDT NPRG Bilirubin Negative Negative 01/21/2025 3:04 PM CDT NPRG pH 6.5 5.0 - 8.0 01/21/2025 3:04 PM CDT NPRG Specific [place] 1.010 1.001 - 1.035 01/21/2025 3:04 PM CDT NPRG Urobilinogen 0.2 0.2 - 1.0 mg/dL 01/21/2025 3:04 PM CDT NPRG Urine (Urine, Midstream) 01/21/2025 2:57 PM CDT 01/21/2025 3:01 PM CDT us Christiano Carmona M.D. LAB URINE ORDERABLES Final R esult [facility] [address] [place] [address], [place] NPRG [facility] [address] [place] [address] documented in this encounter Visit Diagnoses Diagnosis Other Specified Conditions Associated With Female Genital Organs And Menstrual Cycle- Primary Pain Pelvic Female Vaginosis Bacterial documented in this encounter Administered Medications Inactive Administered Medications - up to 3 most recent administrations Medication Order MAR Action Action Date Dose Rate Site acetaminophen tablet 1,000 mg (TylenoL) 1,000 mg, oral, Once, On 01/21/25 at 1504, For 1 dose Given 01/21/2025 3:06 PM CDT 1,000 mg documented in this encounter Active and Recently Administered Medications Times are shown in CDT. Scheduled Medication Order 01/19/2025 01/20/2025 01/21/2025 acetaminophen tablet 1,000 mg (TylenoL) (COMPLETED) 1,000 mg, oral, Once, On 01/21/25 at 1504, For 1 dose 1506 (Given - Provid er: Digna Dewitt R.N.) documented in this encounter Additional Health Concerns Assessment Noted Time PHQ-9 Depression Total Score: 9 11/15/19 25 9:24 AM CDT documented as of this encounter Care Teams Bundle Helper Relationship Specialty Start Date End Date Alysia Vora APRN, C.N.P. [address] [place] [phone] PCP - General Family Medicine 08/03/19 documented as of this encounter
--- OUTSIDE RECORDS SUMMARY | 2025-01-21 16:10 | XMS_ITS | Encounter Summary ---
Author Organization [facility] Address [address] [place] [address] Care Team Providers Care Hot Press Operator Name Role Phone Alysia Vora APRN, C.N.P. Primary Care Pro vider Encounter Details Date Type Department Care Team (Late st Contact Info) Description 01/21/2025 4:10 PM CDT Ancillary Procedure Department of Emergency Medicine Arrived Social History Tobacco Use Types Packs/Day Years Used Date Smoking Tobacco: Never Passive Smoke Exposure: Never Smokeless Tobacco: Never Alcohol Use Standard Drinks/Week Comments Never 0 (1 standard drink = 0.6 oz pur e alcohol) [facility] Utilities Answer Date Recorded In the past 12 months has e [employer], gas, oil, or water [employer] threatened to shut off services in your [...] money to buy more. Never true 10/09/19 24 Within the past 12 months, t he [...] your living situation today? I have a [facility] place to live 10/09/2023 Education Answer Date Recorded What is the highest level of school you have completed or the highest degree you have received? 12th grade 08/01/2022 Comments No Sex and Gender Information Value Date Recorded Sex Assigned at Female 04/24/2021 1:37 PM SECURITY OPERATIONS CENTER ANALYST Legal Sex Female 4:54 PM SECURITY OPERATIONS CENTER ANALYST Gender Identity Female 07/31/2020 9:20 AM SECURITY OPERATIONS CENTER ANALYST Sexual Orientation Straight 07/31/2020 9: 20 AM SECURITY OPERATIONS CENTER ANALYST documented as of this encounter Plan of Treatment Not on file documented as of this encounter Procedures Procedure Name Priority Date/Time Associated Diagnosis Comments EMERGENCY DEPARTMENT IMAGE EXAM Routine 01/21/2025 4:10 PM CDT documented in this encounter Results * Non-Radiology Image-Emergency Department Image Exam (01/21/2025 4:10 PM CDT) 01/21/2025 4:06 PM CDT Narrative IIMS - 01/21/2025 4:25 PM CDT This order has been created and auto-finalized to support the import of images acquired without order. The clinical documentation to support these images can be found on the encounter that produced images. us Provider Not In System IMG NON RAD IMAGING PROCE DURES Final Result IIMS NA documented in this encounter Visit Diagnoses Not on filedocumented in this encounter Additional Health Concerns Assessment Noted Time PHQ-9 Depression Total Score: 9 11/15/19 25 9:24 AM CDT documented as of this encounter Care Teams Hot Press Operator Relationship Specialty Start Date End Date Alysia Vora APRN, C.N.P. [address] [place] [phone] PCP - General Family Medicine 08/03/19 documented as of this encounter
--- OUTSIDE RECORDS SUMMARY | 2025-01-23 14:09 | XMS_ITS | Clinical Summary ---
Author Organization [facility] Address [address] [place] [address] Care Team Providers Care Preparation Plant Supervisor Name Role Phone Alysia Vora APRN, C.N.P. Primary Care Pro vider Source Comments Patient records contain information from all sites at [facility]. For routine questions regarding patient records, call [phone] during business hours, M-F 8:00 AM - 5:00 PM Central Time. Record requests for emergency care only can be directed to [phone] at any time.[facility] Allergies No known active allergies Medications * This document contains information received from the source organization and may not represent a complete record from that organization. cetirizine (ZyrTEC) 10 mg tabletIndicati ons:Rhinitis Allergic Take 1 tablet (10 mg total) by mouth daily as needed for allergies. 2 Active propranoloL (InderaL) 20 mg tablet Take 1 tablet (20 mg total) by mouth daily. 90 tablet 1 5 Active gabapentin (Neurontin) 300 mg capsule Take 1 capsule (300 mg total) by mouth 2 (two) times a day. 60 capsule 2 5 Active metroNIDAZOLE (FlagyL) 500 mg tabletIndicati ons:Vaginosis Bacterial Take 1 tablet (500 mg total) by mouth 2 (two) times a day for 7 days. 14 tablet 5 025 Active lamoTRIgine (LaMICtaL) 100 mg tablet Take 125mg by mouth twice daily for one week, then decrease to 100mg by mouth twice daily. 60 tablet 2 5 Active lamoTRIgine (LaMICtaL) 25 mg tablet Take 125mg by mouth twice daily for one week, then decrease to 100mg by mouth twice daily. 14 tablet 5 Active lamoTRIgine (LaMICtaL) 150 mg tablet Take 1 tablet (150 mg total) by mouth 2 (two) times a day. 60 tablet 2 5 025 Discontinued Active Problems Patient Care Coordination No te Formatting of this note migh t be different from the original. GC/chl at 14wk visit GDM Problem Noted Date Diagnosed Date Anxiety Disorder Unspecified 07/28/2023 Insomnia 12/05/2022 Pain Knee Right 12/30/2021 Overview (12/30/2021): Added automatically from request for surgery [id number] Bipolar II Disorder 09/23/2021 Posttraumatic Stress Disorder Prolonged 07/08/19 22 Resolved Problems Problem Noted Date Diagnosed Date Resolved Date Obsessive Compulsive Disorder 03/24/2023 12/01/2023 Encounters * This document contains information received from the source organization and may not represent a complete record from that organization. Date Type Department Care Team Description 01/22/2025 Results Follow-Up [facility] [address] [place] [phone] Alex Arreaga M.D. Bacterial Culture, Aerobic + Susceptibility, Urine, Vaginitis Panel, Amplified RNA 01/21/2025 4:10 PM CDT Ancillary Procedure Department of Emergency Medicine Arrived 01/21/2025 2:53 PM CDT - 01/21/2025 5:21 PM CDT Emergency [facility] [address] [place] [phone] Christiano Carmona M.D. Other Specified Conditions Associated With Female Genital Organs And Menstrual Cycle (Primary Dx); Pain Pelvic Female; Vaginosis Bacterial Discharge Disposition: Home or Self Care 01/21/2025 Nurse Triage Department of Family Medicine in [place], [place] [address] [place] [phone] Lesky, Libby E, R.N. Contraception from Last 3 Months Immunizations Immunization Administration Dates Next Due DTaP (Infanrix, Tripedia) 12/31/2006,11/2002,2001,2001,2001 HepA Pediatric/Adolescent 10/17/2013 Hib-HepB 05/26/2002,2001,2001 IPV 12/31/2006, 2,2001,2001 Influenza, Unspecified 04/19/2015 MCV4 (Menactra)(Discontinued) 10/17/2013 MMR 08/11/2002 MMRV 12/31/2006 PCV7 (discontinued) 05/26/2002,02/24/2002 Tdap 10/01/2020,11/03/2017,10/17/2013 SASHA 08/11/2002 influenza vaccine quad (FLUZONE/FLUARIX) (6 months and older)(PF) 04/18/2021,03/21/2020,05/06/2019,2017 Family History Medical History Relation Name Comments Hypertension Father Phong Hoang Anxiety disorder Mother nurys Asthma Mother nurys Relation Name Status Comments Father Phong Hoang Alive Mother nurys Alive Social History Tobacco Use Types Packs/Day Years Used Date Smoking Tobacco: Never Passive Smoke Exposure: Never Smokeless Tobacco: Never Tobacco Cessation:Counseling Given: Not Answered Alcohol Use Standard Drinks/Week Comments Never 0 (1 standard drink = 0.6 oz pur e alcohol) [facility] Utilities Answer Date Recorded In the past 12 months has [facility] [employer], [employer], or water [employer] threatened to shut off services in your [...] Recor ded PHQ-9 Total Score (max 27) 8 01/23 Housing Stability Answer Date Recorded What is your living situation today? I have a [facility] place to live 10/09/2023 Education Answer Date Recorded What is the highest level of school you have completed or the highest degree you have received? 12th grade 08/01/2022 Comments No Sex and Gender Information Value Date Recorded Sex Assigned at Female 04/24/2021 1:37 PM METAL RIVETER Legal Sex Female 4:54 PM METAL RIVETER Gender Identity Female 07/31/2020 9:20 AM METAL RIVETER Sexual Orientation Straight 07/31/2020 9: 20 AM METAL RIVETER Last Filed Vital Signs Vital Sign Reading Time Taken Comments Blood Pressure 118/76 01/21/2025 5:20 PM CDT Pulse 72 01/21/2025 5:20 PM CDT Temperature 37.4 C (99.3 F) 01/21/2025 3:02 PM CDT Respiratory Rate 16 01/21/2025 5:20 PM CDT Oxygen Saturation 100% 01/21/2025 5:20 PM CDT Inhaled Oxygen Concentration - - Weight 85.3 kg (188 lb 1.6 oz) 01/23/2025 11:21 AM CDT Height 160 cm (5' 3) 01/21/2025 2:56 PM CDT Body Mass Index 33.32 01/21/2025 2:56 PM CDT Plan of Treatment Health Maintenance Due Date Last Done Comments Hepatitis C Screening 2001 HPV Vaccines (1 - 3-dose series) 2016 Chlamydia and Gonorrhea Screening 10/15/2019 10/14/2018, 09/28/2017 COVID-19 Vaccine ( season) 2024 Influenza Vaccine (#1) 2025 , 03/21/2020, 05/06/2019, Additional history exists Cervical/Vaginal Cancer Screening 08/13/2025 08/13/2022 DTaP,Tdap,and Td Vaccines (9 - Td or Tdap) 10/01/2030 10/01/2020, 11/03/2017, 10/17/2013, Additional history exists Hepatitis B Vaccines Completed 05/26/2002, 2001, 2001 Pneumococcal vaccine (0-49 years) Aged Out 05/26/2002, 02/24/2002 No longer eligibl e based on patient's age to complete this topic IPV Vaccines Completed 12/31/2006, 11/2001, 2001, Additional history exists Varicella Vaccines Completed 12/31/2006, 08/11/2002 Hepatitis B Screening Discontinued 09/28/2017 HIV Screening Completed 05/24/2020, 09/28/2017 Glucose Test for Med Monitoring Discontinued 10/13/2023, 02/09/2023, 11/28/2022, Additional history exists Depression Screening (Annual PHQ-2) Completed 01/23/2025, 11/14/2024 Procedures Procedure Name Priority Date/Time Associated Diagnosis Comments VAGINITIS PANEL, AMPLIFIED RNA STAT 01/21/2025 4:50 PM CDT EMERGENCY DEPARTMENT IMAGE EXAM Routine 01/21/2025 4:10 PM CDT HC URINALYSIS AUTO W MICRO STAT 01/21/2025 2:57 PM CDT TEST, POCT, U (LAB) STAT 01/21/2025 2:57 PM CDT URINALYSIS WITH MICROSCOPIC IF INDICATED, U STAT 01/21/2025 2:57 PM CDT BACTERIAL CULTURE, AEROBIC + SUSC, URINE Routine 01/21/2025 2:57 PM CDT BASIC METABOLIC PANEL, S/P Routine 10/13/2023 10:40 AM CDT Palpitations Arrhythmia Sinus Other Chest Pain Fatigue THINPREP DIAGNOSTIC HPV REFLEX Routine 08/13/2022 10:00 AM METAL RIVETER Well Adult Examination Normal HIV-1/-2 AG AND AB SCRN, PLASMA Routine 05/24/2020 1:35 PM METAL RIVETER Abdominal With Intrauterine (HCC) CHLAMYDIA/GONORRHOEA E AMPLIFIED RNA Routine 10/14/2018 8:56 AM CDT Preventive Gynecological Exam HEPATITIS B SURFACE ANTIGEN Routine 09/28/2017 4:49 PM CDT Normal First from Last 3 Months or Most Recently Relevant to Health Maintenance Results * (ABNORMAL) Vaginitis Panel, Amplified RNA [...] CDT 01/21/2025 9:55 PM CDT us Christiano Carmona M.D. LAB MICROBIOLOGY - GENERAL O RDERABLES Final Result [facility] [address] [place] [address], [facility] [address] [facility] [address] [place] [address] * Non-Radiology Image-Emergency Department Image Exam (01/21/2025 [...] NON RAD IMAGING PROCE DURES Final Result Performing Organization Address City/[facility]/ZIP Co de Phone Number IIMS NA * (ABNORMAL) Urinalysis with Microscopic if Indicated: [...] 8.0 01/21/2025 3:04 PM CDT NPRG Specific [place] 1.010 1.001 - 1.035 01/21/2025 3:04 PM CDT NPRG Urobilinogen 0.2 0.2 - 1.0 mg/dL 01/21/2025 3:04 PM CDT NPRG Urine (Urine, Midstream) 01/21/2025 2:57 PM CDT 01/21/2025 3:01 PM CDT us Christiano Carmona M.D. LAB URINE ORDERABLES Final R esult Performing Organization Address [facility]/ZIP Co de Phone Number [facility] [address] [place] [address], [place] NPRG [address] [address] * (ABNORMAL) Microscopic Manual (01/21/2025 2:57 PM [...] Interface LAB URINE ORDERABLES Jackeline l Result Performing Organization Address [facility]/ZIP Co de Phone Number [facility] [address] [place] [address], [facility] NPRG [place] [address] [place] [address] * Bacterial Culture, Aerobic + Susceptibility, Urine (01/21/2025 2:57 PM CDT) Urine Culture Urogenital microbiota, susceptibilities not performed per laboratory criteria. 01/22/2025 3:56 PM CDT [facility] Urine (Urine, Midstream) 01/21/2025 2:57 PM CDT 01/21/2025 9:55 PM CDT Comment:Specimen Source Site : Urine Christiano Carmona M.D. LAB MICROBIOLOGY - GENERAL O RDERABLES Final Result [facility] [address] [place] [address], [facility] in [place] [address] [place] [address] * Test, POCT, Urine (Lab) (01/21/2025 2:57 PM CDT) Pathologist [facility] Test, POCT, U Negative 01/21/2025 3:13 PM CDT NPRG Urine (Urine, Midstream) 01/21/2025 2:57 PM CDT 01/21/2025 3:01 PM CDT Christiano Carmona M.D. LAB POCT ORDERABLES - DEVICE Final Result [facility] [address] [place] [address], [facility] NPRG [place] [address] [place] [address] * Basic Metabolic Panel (10/13/2023 10:40 AM CDT) Potassium, P 4.3 3.6 - 5.2 mmol/L 10/13/2023 3:56 PM CDT NPRG Sodium, P 138 135 - 145 mmol/L 10/13/2023 3:56 PM CDT NPRG Chloride, P 102 98 - 107 mmol/L 10/13/2023 3:56 PM CDT NPRG Bicarbonate, P 26 22 - 29 mmol/L 10/13/2023 3:56 PM CDT NPRG Anion Gap, P 10 7 - 15 10/13/2023 3:56 PM CDT NPRG BUN (Blood Urea Nitrogen), P 6 6 - 21 mg/dL 10/13/2023 3:56 PM CDT NPRG Creatinine 0.66 0.59 - 1.04 mg/dL 10/13/2023 3:56 PM CDT NPRG Estimated GFR (eGFR) >90 >=60 mL/min/BSA 10/13/2023 3:56 PM CDT NPRG Comment: Estimated GFR calculated using the 2020 CKD_EPI creatinine equation. Calcium, Total, P 9.0 8.6 - 10.0 mg/dL 10/13/2023 3:56 PM CDT NPRG Glucose, P 94 70 - 140 mg/dL 10/13/2023 3:56 PM CDT NPRG Blood (Blood, Venous) 10/13/2023 10:40 AM CDT 10/13/2023 3:29 PM CDT us Alysia Vora APRN, C.N.P. LAB BLOOD ADD-ON Final Result [facility] [address] [place] [address], [facility] NPRG [facility] [address] [place] [address] * ThinPrep Diagnostic HPV Reflex (08/13/2022 10:00 AM METAL RIVETER) 08/20/2022 1:21 PM CDT [facility] Report electronically signed by Dougie Meyer MD I verify that I have examined all relevant slides/materials for the specimen(s) and rendered or confirmed the diagnosis. 08/20/2022 1:21 PM CDT [facility] Gross Description Received specimen in a ThinPrep vial. 08/20/2022 1:21 PM CDT [facility] Pap Test Source Cervical/Endocervi toya 08/20/2022 1:21 PM CDT [facility] Clinical History cervix 08/21/19 1:21 PM CDT [facility] Hormone Therapy/Contracep tives oral contraceptives 08/20/2022 1:21 PM CDT [facility] Interpretation Cervical/Endocervi toya (ThinPrep): Satisfactory for Evaluation Negative for Intraepithelial Lesion or Malignancy 08/20/2022 1:21 PM CDT [facility] Thin Prep Vial (Cervix) 08/13/2022 10:00 AM METAL RIVETER 08/14/2022 8:26 AM METAL RIVETER us Alysia Vora PARTS ORDER AND STOCK CLERK, C.N.P. LAB PAP PATHDX OR DERABLES Final Result [facility] [address] [place] [address], [facility] [address] [place] [address] * HIV-1/-2 Ag and Ab Scrn, Plasma (05/24/2020 1:35 PM METAL RIVETER) HIV Ag/Ab Scrn, P Negative Negative 05/25/2020 2:33 PM METAL RIVETER [facility] Comment: Negative result does not rule out HIV infection. If exposure to HIV infection occurred <14 days ago, contact the laboratory to request addition of HIV-1 RNA detection / quantification test. HIV-1 p24 Ag Scrn, P Negative Negative 05/25/2020 2:33 PM METAL RIVETER [facility] Comment: Negative result does not rule out HIV infection. If exposure to HIV infection occurred <14 days ago, contact the laboratory to request addition of HIV-1 RNA detection / quantification test. HIV-1 Ab Scrn, P Negative Negative 05/25/2020 2:33 PM METAL RIVETER [facility] Comment: Negative result does not rule out HIV infection. If exposure to HIV infection occurred <14 days ago, contact the laboratory to request addition of HIV-1 RNA detection / quantification test. HIV-2 Ab Scrn, P Negative Negative 05/25/2020 2:33 PM METAL RIVETER [facility] Comment: Negative result does not rule out HIV infection. If exposure to HIV infection occurred <14 days ago, contact the laboratory to request addition of HIV-1 RNA detection / quantification test. Blood (Blood, Venous) 05/24/2020 1:35 PM METAL RIVETER 05/24/2020 6:32 PM METAL RIVETER Phong Lan M.D. LAB MICROBIOLOGY - BLOOD ORDERABLES Final Result Performing Organization Address City/[facility]/ZIP Co de Phone Number [facility] [address] [place] [address], [facility] in [place] [address] [place] [address] * Chlamydia / Gonorrhoeae Amplified RNA (10/14/2018 8:56 AM CDT) Source Urine, Urine, First Voided 10/14/2018 8:01 PM CDT [facility] Chlamydia trachomatis amplified RNA Negative Negative 10/14/2018 8:01 PM CDT [facility] Comment: ----ADDITIONAL INFORMATION---- This report is intended for use in clinical monitoring and management of patients. It is not intended for use in medical-legal applications. Source Urine, Urine, First Voided 10/14/2018 8:01 PM CDT [facility] Neisseria gonorrhoeae amplified RNA Negative Negative 10/14/2018 8:01 PM CDT [facility] Comment: ----ADDITIONAL INFORMATION---- This report is intended for use in clinical monitoring and management of patients. It is not intended for use in medical-legal applications. Varies (Urine, First Voided) 10/14/2018 8:56 AM CDT 10/14/2018 2:48 PM CDT Phong Lan M.D. LAB MICROBIOLOGY - GENER AL ORDERABLES Final Result Performing Organization Address City/[facility]/ZIP Co de Phone Number [facility] [address] [place] [address], [facility] * Hepatitis B Surface Antigen (09/28/2017 4:49 PM CDT) HBs Antigen, S Nonreactive Nonreactive 09/30/19 18 7:31 PM CDT [facility] Comment: Biotin has been identified by the suction plate carrier cleaner as a potential interfering substance. Higher concentrations of biotin may be found in multivitamins, hair/nail supplements, and workout supplements. If the result does not match clinical observations, repeat testing after patient refrains from the use of supplements for at least 12 hours. Blood (Blood, Venous) 09/28/2017 4:49 PM CDT 09/29/2017 7:27 PM CDT us Phong Lan M.D. LAB MICROBIOLOGY - BLOOD ORDERABLES Final Result [facility] [address] [place] [address], [facility] from Last 3 Months or Most Recently Relevant to Health Maintenance Insurance [facility] Advance Directives For more information, please contact: [phone] * Full Code (Latest Code Status on File) Date Activated Date Inactivated Comments 01/06/2022 10:59 AM 01/06/2022 2:02 PM Question Answer Comments Full Code: Discussed * Full Code Date Activated Date Inactivated Comments 01/08/2018 11:32 AM 01/10/2018 2:33 PM Question Answer Comments Full Code: Discussed * Full Code Date Activated Date Inactivated Comments 01/07/2018 11:53 PM 01/08/2018 11:32 AM Question Answer Comments Full Code: Discussed Care Teams Preparation Plant Supervisor Relationship Specialty Start Date End Date Alysia Vora APRN, C.N.P. [address] [place] [phone] PCP - General Family Medicine 08/03/19
--- OUTSIDE RECORDS SUMMARY | 2025-01-23 14:09 | XMS_ITS | Encounter Summary ---
Author Organization [facility] Address [address] [place] [address] Care Team Providers Care Cant Gang Sawyer Name Role Phone Alysia Vora APRN, C.N.P. Primary Care Pro vider Encounter Details Date Type Department Care Team (Late st Contact Info) Description 01/22/2025 Results Follow-Up [place] [facility] [address] [place] [phone] Alex Arreaga M.D. [address] [place] [phone] Bacterial Culture, Aerobic + Susceptibility, Urine, Vaginitis Panel, Amplified RNA Social History Tobacco Use Types Packs/Day Years Used Date Smoking Tobacco: Never Passive Smoke Exposure: Never Smokeless Tobacco: Never Alcohol Use Standard Drinks/Week Comments Never 0 (1 standard drink = 0.6 oz pur e alcohol) [facility] Utilities Answer Date Recorded In the past 12 months has [facility] [employer], gas, oil, or water [employer] threatened to shut off services in your [...] your living situation today? I have a [facility] place to live 10/09/2023 Education Answer Date Recorded What is the highest level of school you have completed or the highest degree you have received? 12th grade 08/01/2022 Comments No Sex and Gender Information Value Date Recorded Sex Assigned at Female 04/24/2021 1:37 PM PROVISIONING ANALYST Legal Sex Female 4:54 PM PROVISIONING ANALYST Gender Identity Female 07/31/2020 9:20 AM PROVISIONING ANALYST Sexual Orientation Straight 07/31/2020 9: 20 AM PROVISIONING ANALYST documented as of this encounter Functional Status * 1. Wish to be (Past 1 Month) Answer Date of Assessment Author No 01/23/2025 11:16 AM CDT Patient, Online Services * 2. Non-Specific Active Suicidal Thoughts (Past 1 Month) Answer Date of Assessment Author No 01/23/2025 11:16 AM CDT Patient, Online Services * Calculated C-SSRS Risk Score (Lifetime/Recent) Answer Date of Assessment Author No Risk Indicated 01/23/2025 11:16 AM CDT Vinod harris, Online Services * 6. Suicidal Behavior (Lifetime) Answer Date of Assessment Author No 01/23/2025 11:16 AM CDT Patient, Online Services documented as of this encounter Plan of Treatment Not on file documented as of this encounter Visit Diagnoses Not on filedocumented in this encounter Additional Health Concerns Assessment Noted Time PHQ-9 Depression Total Score: 9 11/15/19 25 9:24 AM CDT documented as of this encounter Care Teams Cant Gang Sawyer Relationship Specialty Start Date End Date Alysia Vora APRN, C.N.P. [address] [place] [phone] PCP - General Family Medicine 08/03/19 documented as of this encounter
--- OUTSIDE RECORDS SUMMARY | 2025-01-23 14:10 | XMS_ITS | Encounter Summary ---
[facility] Address [address] [place] [address] Care Team Providers Care Team Primary Care Physician Name Role Phone Alysia Vora APRN, C.N.P. Primary Care Pro vider Reason for Visit * Reason Onset Date Comments Contraception 01/21/2025 Encounter Details Date Type Department Care Team (Late st Contact Info) Description 01/21/2025 Nurse Triage Department of Family Medicine in [place], [place] [address] [place] [id number] Libby Mcdaniel, R.N. Contraception Social History Tobacco Use Types Packs/Day Years Used Date Smoking Tobacco: Never Passive Smoke Exposure: Never Smokeless Tobacco: Never Alcohol Use Standard Drinks/Week Comments Never 0 (1 standard drink = 0.6 oz pur e alcohol) [facility] Utilities Answer Date Recorded In the past 12 months has [facility] [employer] gas, oil, or water [employer] threatened to shut off services in your [...] your living situation today? I have a [facility] place to live 10/09/2023 Education Answer Date Recorded What is the highest level of school you have completed or the highest degree you have received? 12th grade 08/01/2022 Comments No Sex and Gender Information Value Date Recorded Sex Assigned at Female 04/24/2021 1:37 PM [employer]NAGER STATE Legal Sex Female 4:54 PM [employer]NAGER STATE Gender Identity Female 07/31/2020 9:20 AM [employer]NAGER STATE Sexual Orientation Straight 07/31/2020 9: 20 AM [employer]NAGER STATE documented as of this encounter Miscellaneous Notes * Telephone Encounter - Libby Mcdaniel R.N. - 01/21/2025 8:57 AM CDT Chief Complaint / Reason for Call Patient is a 24 y.o. female calling regarding Contraception. Assessment Concern: Having extreme shooting pains in uterus that radiate down into the vagina, worsening. Rated pain 6-7/10, lower pelvic/constant. Worse w/ movement, like sitting down. Every time she urinates, it shoots pain. Increased discharge, yellow/brown. IUD inserted elsewhere ([place])-with firstone she developed severe bleeding and it shifted placement. This was removed and replaced on 01/03. Cannot locate string. Present for: a few days Home cares tried: monitoring Calling to request: go in to be seen? The recommended disposition is See a health care provider within 4 hours. Recommended UC in [place], hours provided. Reason for Disposition [1] Constant abdominal pain AND [2] present > 2 hours Protocols used: Contraception - IUD Symptoms and Ywzjhhcsq-Qwvma-MR Care Advice Patient/Caregiver understands and will follow care advice?: Yes, able to teach back Contraception - IUD Symptoms and Gjwgbrule-Untds-WU Nurse Libby Lopez Jan 21, 2025 09:02 AM Care Advice CALL BACK IF: * You become worse documented in this encounter Plan of Treatment Not on file documented as of this encounter Visit Diagnoses Not on filedocumented in this encounter Additional Health Concerns Assessment Noted Time PHQ-9 Depression Total Score: 9 11/15/19 25 9:24 AM CDT documented as of this encounter Care Teams Team Primary Care Physician Relationship Specialty Start Date End Date Alysia Vora APRN, C.N.P. [address] [place] [address] PCP - General Family Medicine 08/03/19 documented as of this encounter
[2025-01-23 14:18] VITALS: BP 129/83; PULSE 88; RESP 20; TEMP 37.4; O2SAT 98; BMI 34.6
== END 2025-01-23 15:23 | disposition left against medical advice (07) ==
LOC: ED 15:20
PROVIDERS: Emergency Provider Student in an Organized Health Care Education/Training Program
DX: Z53.21 Procedure and treatment not carried out due to patient leaving prior to being seen by health care provider (principal)